=== PATIENT | female | born 1990 | race Caucasian/White ===

== ENCOUNTER 2025-01-27 01:55 | Emergency (ER) | payer BC ==
[2025-01-27] MEDS ORDERED: ONDANSETRON 4 MG/2 ML VIAL ONE (02:21)
[2025-01-27] MEDS ORDERED: NA CHLORIDE 0.9% 1,000 ML ONE (02:21)
[2025-01-27 02:27] LABS: Absolute Lymphocytes (CBC) 2.7 K/uL (0.7-4.9); Hematocrit 43.4 % (36.0-45.0); Hemoglobin 14.6 g/dL (12.0-15.0); MCH 30.2 pg (27.0-35.0); MCHC 33.6 g/dL (32.0-36.0); MCV 89.8 fL (80-100); MPV 8.8 fL (7.6-11.3); Nucleated RBC Absolute Count 0.0 (0-0); Nucleated Red Blood Cells % 0.0 % (0-0); RBC Red Blood Cell Count 4.83 M/uL (3.86-4.86); White Blood Count 8.90 thou/uL (4.3-10.9)
[2025-01-27 02:37] LABS: HCO3, Venous Blood Gas 21.6 mmol/L (21.0-29.0); PCO2, Venous Blood Gas 41 mmHg (41-51); PH, Venous Blood Gas 7.33 (7.32-7.42); PO2, Venous Blood Gas 65 mmHg (25-40)
[2025-01-27 02:38] LABS: Base Excess, VBG -4.3 mmol/L (-2.0-3.0); O2 Saturation, VBG 90.8 % (40.0-70.0)
[2025-01-27 03:00] LABS: ALT/SGPT 33 U/L (13-56); AST/SGOT 19 U/L (15-37); Albumin 4.0 g/dL (3.4-5.0); Albumin/Globulin Ratio 1.2 (1.1-1.8); Alkaline Phosphatase 89 U/L (45-117); Anion Gap 17.3 mEq/L (5.0-15.0); BUN Blood Urea Nitrogen 20 mg/dL (7-18); Bilirubin Indirect, Calculated 0.4 mg/dL (0.2-0.8); Globulin 3.4 g/dL (2.3-3.5); Glucose Level 399 mg/dL (74-106); Lipase 19 U/L (13-75); Magnesium 2.0 mg/dL (1.6-2.4); Potassium 4.3 mEq/L (3.5-5.1)
[2025-01-27] MEDS ORDERED: INSULIN REGULAR (HUMAN) 100 UNIT/ML ONE (03:12)
--- NOTE | 2025-01-27 04:01 | ER ---
Nurse's Notes [facility] Name: Ofelia Fritz Age: 35 yrs Sex: Female : 1990 Arrival Date: 01/27/2025 Time: 01:55 Bed 6 Private MD: Diagnosis: Hyperglycemia, unspecified;Type 1 diabetes mellitus with hyperglycemia;Nausea with vomiting, unspecified Presentation: 01/27 02:15 Chief complaint: Patient states: Pt to ED via POV, c/o hyperglycemia due to pump mf3 malfunctioning. Upon arrival, pt cbg is 360. Pt a/ox4. Coronavirus screen: At this time, the client does not indicate any symptoms associated with coronavirus-19. Ebola Screen: No symptoms or risks identified at this time. Initial Sepsis Screen: Does the patient meet any 2 criteria? No. Patient's initial sepsis screen is negative. Does the patient have a suspected source of infection? No. Patient's initial sepsis screen is negative. Risk Assessment: Do you want to hurt yourself or someone else? Patient reports no desire to harm self or others. Onset of symptoms was January 27, 2025. 02:15 Method Of Arrival: Ambulatory [facility] 02:15 Acuity: LUIS MANUEL 3 mf3 Triage Assessment: 02:17 General: Appears in no apparent distress. comfortable, Behavior is calm, cooperative, mf3 appropriate for age. Pain: Denies pain. Neuro: Level of Consciousness is awake, alert, obeys commands, Oriented to person, place, time, situation, Appropriate for age none. Cardiovascular: Capillary refill Patient's skin is warm and dry. Rhythm is sinus rhythm. Respiratory: Airway is patent Trachea midline Respiratory effort is even, unlabored, Respiratory pattern is regular, symmetrical. GI: GI: Reports nausea, vomiting. :. : No signs and/or symptoms were reported regarding the genitourinary system. 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 - Infectious Disease History:: Denies. - Social history:: Smoking status: Patient denies any tobacco usage or history of. Screenin: [facility] ED Fall Risk Assessment (Adult) History of falling in the last 3 months, mf3 including since admission No falls in past 3 months (0 pts) Confusion or Disorientation No (0 pts) Intoxicated or Sedated No (0 pts) Impaired Gait No (0 pts) Mobility Assist Device Used No (0 pt) Altered Elimination No (0 pt) Score/Fall Risk Level 0 - 2 = Low Risk. Abuse screen: Denies threats or abuse. Denies injuries from another. Nutritional screening: No deficits noted. Tuberculosis screening: No symptoms or risk factors identified. Never had TB. Assessment: 02:22 General: See triage . Pain: Denies pain. Neuro: Level of Consciousness is awake, alert, mf3 obeys commands, Oriented to person, place, time, situation, Appropriate for age. Cardiovascular: Capillary refill Patient's skin is warm and dry. Rhythm is regular. Respiratory: Airway is patent Trachea midline Respiratory effort is even, unlabored, Respiratory pattern is regular, symmetrical. GI: Reports nausea, vomiting. 03:20 Reassessment: Patient and/or family updated on plan of care and expected duration. Pain mf3 level reassessed. Patient states symptoms have improved. Pt symptoms have improved. pt states she is not nauseous anymore. Recheck BGL at 0350 . 04:05 Reassessment: Updated CBG 291. Katie. notified. Pt up for discharge Patient states mf3 feeling better. Vital Signs: 02:15 BP 125 / 88; Pulse 92; Resp 17; Temp 98.4; Pulse Ox 100% on R/A; Weight 67.59 kg; mf3 Height 5 ft. 2 in. ; Pain 0/10; 02:25 BP 109 / 74; Pulse 83; Resp 14; Pulse Ox 100% on R/A; mf3 03:24 BP 118 / 72; Pulse 91; Resp 18; Temp 98.2; Pulse Ox 100% ; mf3 04:05 BP 112 / 67; Pulse 84; Resp 18; Temp 98.4; Pulse Ox 99% ; mf3 02:15 Body Mass Index 27.25 (67.59 kg, 157.48 cm) mf3 02:15 Pain Scale: Adult mf3 ED Course: 01:58 Patient arrived in ED. [email or web address] 02:06 Osmel Wilson DO is Attending Physician. ms3 02:14 Jackie Cruz, RN is Primary Nurse. mf3 02:17 Triage completed. mf3 02:17 Arm band placed on right wrist. mf3 02:22 Patient has correct armband on for positive identification. Bed in low position. Call mf3 light in reach. Side rails up X 1. Provided Education on: Pt informed about plan of care. 02:22 Inserted saline lock: 20 gauge in right antecubital area, using aseptic technique. mf3 Blood collected. Flushed with 10 mL NS. 04:07 No provider procedures requiring assistance completed. IV discontinued, intact, mf3 bleeding controlled, No redness/swelling at site. Pressure dressing applied. Administered Medications: 02:28 Drug: Ondansetron IVP 4 mg IVP once; over 2 minutes Route: IVP; Site: right antecubital;3 04:13 Follow up: Response: No adverse reaction 3 02:28 Drug: NS 0.9% IV 1000 ml IV at 1 bolus Per protocol; to be given as a bolus over 60 mf3 minutes Route: IV; Rate: 1 bolus; Site: right antecubital; 04:05 Follow up: Response: No adverse reaction; IV Status: Completed infusion; IV Intake: mf3 1000ml 03:18 Drug: Insulin Regular Human Sub-Q 10 units Sub-Q once {Co-Signature: ha1 (Samreen Willoughby 3 RN).} Route: Sub-Q; Site: left lower abdomen; 04:13 Follow up: Response: No adverse reaction; Blood sugar is lowered mf3 Medication: 02:22 VIS not applicable for this client. mf3 Intake: 04:05 IV: 1000ml; Total: 1000ml. 3 Outcome: 04:01 Discharge ordered by . ms3 04:06 Discharged to home ambulatory, with family, 3 04:06 Condition: stable 04:06 Discharge instructions given to patient, family, Instructed on discharge instructions, follow up and referral plans. medication usage, Demonstrated understanding of instructions, follow-up care, medications, 04:14 Patient left the ED. 3 Signatures: Osmel Wilson DO DO ms3 ManuelQi [email or web address] Jackie Cruz, PARVEEN RN 3 Samreen Willoughby RN haLamberto Corrections: (The following items were deleted from the chart) 03:24 03:20 Reassessment: Patient and/or family updated on plan of care and expected mf3 duration. Pain level reassessed. Patient states symptoms have improved. Pt symptoms have improved. pt states she is not nauseous anymore. mf3
--- NOTE | 2025-01-27 04:01 | EDPHYS ---
Physician Documentation [facility] Name: Ofelia Fritz Age: 35 yrs Sex: Female : 1990 Arrival Date: 01/27/2025 Time: 01:55 Bed 6 Private MD: ED Physician Osmel Wilson HPI: 01/27 02:36 This 35 yrs old Female presents to ER via Ambulatory with complaints of High Blood ms3 Sugar, Pt has h/o Type I DM, Pt states she is having issues with insulin pump while here on vacation. 02:36 35-year-old female with past medical history of diabetes type 1, ankylosing spondylitis ms3 presents to the emergency department for nausea and vomiting. Patient states she is a type I diabetic and is concerned her pump site is not working as has been bothering her today. Patient is in town from [place] and does not have backup needles. Patient denies pain at this time. She does endorse nausea and vomiting. She denies shortness of breath, fevers, chills.. 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 - Infectious Disease History:: Denies. - Social history:: Smoking status: Patient denies any tobacco usage or history of. ROS: 02:36 Constitutional: Negative for fever, and chills. Cardiovascular: Negative for chest ms3 pain, and palpitations. Respiratory: Negative for shortness of breath, cough, wheezing, and pleuritic chest pain, 02:36 MS/Extremity: Negative for injury and deformity, Skin: Negative for injury, rash, and discoloration, 02:36 Abdomen/GI: Positive for nausea and vomiting, Exam: 02:36 Constitutional: This is a well developed, well nourished patient who is awake, alert, ms3 and in no acute distress. Cardiovascular: Regular rate and rhythm with a normal S1 and S2. No gallops, murmurs, or rubs. Normal PMI, no JVD. No pulse deficits. Respiratory: Lungs have equal breath sounds bilaterally, clear to auscultation and percussion. No rales, rhonchi or wheezes noted. No increased work of breathing, no retractions or nasal flaring. Abdomen/GI: Soft, non-tender, with normal bowel sounds. No distension or tympany. No guarding or rebound. No evidence of tenderness throughout. Skin: Warm, dry with normal turgor. Normal color with no rashes, no lesions, and no evidence of cellulitis. 03:15 ECG was reviewed by the Attending Physician. ms3 Vital Signs: 02:15 BP 125 / 88; Pulse 92; Resp 17; Temp 98.4; Pulse Ox 100% on R/A; Weight 67.59 kg; 3 Height 5 ft. 2 in. ; Pain 0/10; 02:25 BP 109 / 74; Pulse 83; Resp 14; Pulse Ox 100% on R/A; mf3 03:24 BP 118 / 72; Pulse 91; Resp 18; Temp 98.2; Pulse Ox 100% ; 3 04:05 BP 112 / 67; Pulse 84; Resp 18; Temp 98.4; Pulse Ox 99% ; 3 02:15 Body Mass Index 27.25 (67.59 kg, 157.48 cm) 3 02:15 Pain Scale: Adult 3 MDM: 02:06 Medical Screening Exam initiated ms3 02:36 Differential diagnosis: DKA, hyperglycemia, Gastroenteritis. ms3 03:05 ED course: pH 7.33, gap 13. Will give patient 10 units SC insulin. Discussed plan with ms3 patient and she agrees with plan. Will continue to observe patient in the ED. 05:00 Data reviewed: vital signs, nurses notes, lab test result(s), EKG, and as a result, I ms3 will discharge patient. Consideration of Admission/Observation Escalation of care including admission/observation considered. Gap 13, pH 7.33. I considered the following discharge prescriptions or medication management in the emergency department Medications were administered in the Emergency Department. See MAR. Independent interpretation of the following test(s) in the Emergency Department EKG: See my EKG interpretation above. Counseling: I had a detailed discussion with the patient and/or guardian regarding the historical points, exam findings, and any diagnostic results supporting the discharge/admit diagnosis, lab results, the need for outpatient follow up, to return to the emergency department if symptoms worsen or persist or if there are any questions or concerns that arise at home. ED course: Patient wished to be discharged. On reevaluation patient's symptoms improved, patient alert and oriented x 4, no apparent distress, nontoxic-appearing, speaking full sentences. Patient to follow-up with her primary care physician in 2 to 3 days. All questions were answered. Return precautions discussed include worsening symptoms, or any other concerns.. 01/27 02:07 Order name: BETA HYDROXYBUTYRATE; Complete Time: 03:02 ms3 01/27 02:07 Order name: Basic Metabolic Panel; Complete Time: 03:02 ms3 01/27 02:07 Order name: CBC with Diff; Complete Time: 02:35 ms3 01/27 02:07 Order name: Hepatic Function; Complete Time: 03:02 ms3 01/27 02:07 Order name: Lipase; Complete Time: 03:02 ms3 01/27 02:07 Order name: Magnesium; Complete Time: 03:02 ms3 01/27 02:07 Order name: Phosphorus; Complete Time: 03:02 ms3 01/27 02:21 Order name: Glucose, Ancillary Testing; Complete Time: 02:35 EDMS 01/27 02:33 Order name: VBG Venous Blood Gas; Complete Time: 02:39 EDMS 01/27 02:07 Order name: Cardiac monitoring; Complete Time: 02:29 ms3 01/27 02:07 Order name: EKG - Nurse/Tech; Complete Time: 02:29 ms3 01/27 02:07 Order name: IV Saline Lock; Complete Time: 02:29 ms3 01/27 02:07 Order name: NPO; Complete Time: 02:29 ms3 01/27 02:07 Order name: O2 Per Protocol; Complete Time: 02:29 ms3 01/27 02:07 Order name: O2 Sat Monitoring; Complete Time: 02:29 ms3 EC:15 Rate is 84 beats/min. Rhythm is regular. QRS [place] is Normal. MD interval is normal. QRS ms3 interval is normal. Clinical impression: Normal ECG. Interpreted by me. Reviewed by me. Administered Medications: 02:28 Drug: Ondansetron IVP 4 mg IVP once; over 2 minutes Route: IVP; Site: right antecubital;3 04:13 Follow up: Response: No adverse reaction 3 02:28 Drug: NS 0.9% IV 1000 ml IV at 1 bolus Per protocol; to be given as a bolus over 60 mf3 minutes Route: IV; Rate: 1 bolus; Site: right antecubital; 04:05 Follow up: Response: No adverse reaction; IV Status: Completed infusion; IV Intake: mf3 1000ml 03:18 Drug: Insulin Regular Human Sub-Q 10 units Sub-Q once {Co-Signature: ha1 (Samreen Willoughby 3 RN).} Route: Sub-Q; Site: left lower abdomen; 04:13 Follow up: Response: No adverse reaction; Blood sugar is lowered mf3 Disposition Summary: 01/27/25 04:01 Discharge Ordered Notes: Location: Home ms3 Condition: Stable ms3 Diagnosis - Hyperglycemia, unspecified ms3 - Type 1 diabetes mellitus with hyperglycemia ms3 - Nausea with vomiting, unspecified ms3 Followup: ms3 - With: Private Physician - When: 2 - 3 days - Reason: Recheck today's complaints Discharge Instructions: - Discharge Summary Sheet ms3 - Hyperglycemia ms3 - Nausea and Vomiting, Adult ms3 Forms: - Medication Reconciliation Form ms3 - Antibiotic Education ms3 - Prescription Opioid Use ms3 - Patient Portal Instructions ms3 - Leadership Thank You Letter ms3 Signatures: Dispatcher [employer] EDMS Osmel Wilson DO DO ms3 Jackie Cruz RN RN [facility] Samreen Willoughby RN ha1 Corrections: (The following items were deleted from the chart) 02:07 02:07 BETA HYDROXYBUTYRATE+C.LAB.BRZ ordered. EDMS EDMS 02:07 02:07 BASIC METABOLIC PANEL+C.LAB.BRZ ordered. EDMS EDMS 02:07 02:07 CBC+H.LAB.BRZ ordered. EDMS EDMS 02:07 02:07 HEPATIC FUNCTION+C.LAB.BRZ ordered. EDMS EDMS 02:07 02:07 LIPASE+C.LAB.BRZ ordered. EDMS EDMS 02:07 02:07 MAGNESIUM+C.LAB.BRZ ordered. EDMS EDMS 02:07 02:07 PHOSPHORUS+C.LAB.BRZ ordered. EDMS EDMS 02:42 02:07 Arterial Blood Gas+RC.LAB.BRZ ordered. EDMS EDMS 02:42 02:30 Venous Blood Gas+RC.LAB.BRZ ordered. EDMS EDMS
== END 2025-01-27 04:14 | disposition home or self-care (01) ==
LOC: ER 01:55
DX: E10.65 Type 1 diabetes mellitus with hyperglycemia (principal); Z96.41 Presence of insulin pump (external) (internal)
CPT/HCPCS: 96361; 93005; 85025; 80048; 36415; 83735; 84100; 82947 ×2; 80076; 83690; 82010; 96372; 96374; 99284; 82803; J2405; J1815; J7030